=== PATIENT | female | born 1960 | race Caucasian/White ===

== ENCOUNTER 2019-04-02 15:51 | Emergency (ER) | payer BC ==
--- OUTSIDE RECORDS SUMMARY | 2019-04-02 15:55 | XMS REPORT | Continuity of Care Document ---
:1960 External Reference #:[id number] Author Name Daryl Romero MD (transmitted by agent of provider Milly Sherwood ) Address [address] [place] [address] [place] [address] Care Team Providers Name Role Phone Diana Clark FNP - Family Care Team Information Oracle Data Warehouse Developer [phone] Problems Active Problems Provider Date Localized, primary osteoarthritis Emely Salas M.D. Onset: 07/31/2014 Social History Type Date Description Comments Sex Unknown ETOH Use Never used alcohol Tobacco Use Start: Unknown Patient has never smoked Smoking Status Reviewed: 02/16/19 Patient has never smoked Allergies, Adverse Reactions, Alerts Active Allergies Reaction Severity Comments Date Codeine 01/26/2014 Medications Active Medications SIG Qnty Indications Ordering Provider Date Gabapentin 1 by mouth four 90caps Daryl 02/16/2019 300mg Capsules times a day MD Nick Naproxen Take One Tablet 40tabs M17.0 Emely Salas, 08/28/2014 500mg Tablets By Mouth Twice A M.D. Day With Food; Maximum Daily Dose = 2 Multivitamins As directed Unknown Vitamin D As directed Unknown Vitamin B12 As directed Unknown Caltrate 600+D As directed Unknown Paroxetine HCL 1 by mouth every Unknown 20mg day Tablets Tylenol 8 Hour 1 by mouth twice Unknown Arthritis Pain a day 650mg Tablets ER Fiber Adult Gummies 2 gummies by Unknown 2gm mouth every day Chewtabs Medications Administered in Office Medication SIG Qnty Indications Ordering Provider Date Depomedrol 40MG Marleni Moe NP 03/28/2015 Injection Synvisc Or Synvisc-One Emely Josue, M.D. 07/31/2014 Injection 1 MG Injection Synvisc Or Synvisc-One Emely Salas M.D. 07/24/2014 Injection 1 MG Injection Synvisc Or Synvisc-One Emely Salas M.D. 07/17/2014 Injection 1 MG Injection Depomedrol 80MG Emely Salas M.D. 02/23/2014 Injection Depomedrol 80MG Emely Salas M.D. 01/26/2014 Injection Immunizations Description No Information Available Vital Signs Date Vital Result Comment 02/16/2019 10:18am Height 66 inches 5'6" Weight 244.00 lb Heart Rate 78 /min BP Systolic 138 mmHg BP Diastolic 88 mmHg Pain Level 1 lower back BMI (Body Mass Index) 39.4 kg/m2 03/28/2015 11:36am Height 66 inches 5'6" Weight 232.00 lb Pain Level 5 BMI (Body Mass Index) 37.4 kg/m2 Results Description No Information Available Procedures Description No Information Available Medical Devices Description No Information Available Encounters Description No Information Available Assessments Date Code Description Provider 02/16/2019 M51.17 Intervertebral disc disorders with Daryl Romero MD radiculopathy, lumbosacral region 02/16/2019 M51.36 Other intervertebral disc degeneration, Daryl Romero MD lumbar region Plan of Treatment 02/16/2019 - Daryl Romero MDM51.17 Intvrt disc disorders w radiculopathy, lumbosacral regionFollow up:RV prn. Patient will call our office if she would like to proceed with surgical intervention, possibly in the form of an Anterior Lumbar Interbody Fusion or a Transforaminal Lumbar Interbody Fusion. Please notify me at that time in case it is needed to order additional studies prior to the visit.M51.36 Other intervertebral disc degeneration, lumbar region Functional Status Description No Information Available Mental Status Description No Information Available Referrals Description No Information Available
--- OUTSIDE RECORDS SUMMARY | 2019-04-02 15:55 | XMS REPORT | Continuity of Care Document ---
:1960 External Reference #:[id number] Author Name Daryl Romero MD (transmitted by agent of provider Milly Sherwood ) Address [address] [place] [address] [place] [address] Care Team Providers Name Role Phone Diana Clark FNP - Family Care Team Information Document Image Technician [phone] Problems Active Problems Provider Date Localized, primary [...] Nick Naproxen Take One Tablet 40tabs M17.0 Emley Salas, 08/28/2014 500mg Tablets By Mouth Twice [...] Medical Devices Description No Information Available Encounters Type Date Location Provider Dx Diagnosis Office Visit 02/16/2019 [facility] M51.17 [facility]vrt disc 10[facility] MD disorders w radiculopathy, lumbosacral region M51.36 Other intervertebral disc degeneration, lumbar region Assessments Date Code Description Provider 02/16/2019 M51.17 Intervertebral disc disorders with Daryl Romero MD radiculopathy, lumbosacral region 02/16/2019 M51.36 Other intervertebral disc degeneration, Daryl Romero MD lumbar region Plan of Treatment No Information Available Functional Status Description No Information Available Mental Status Description No Information Available Referrals Description No Information Available
[2019-04-02 16:12] VITALS: BP 138/84
--- NOTE | 2019-04-02 16:17 | UC ---
Knee Pain HPI - HPI Summary HPI Summary: 58 yo woman, managed by the pain clinic with a hx of bilateral leg pain and osteoarthritis, who is scheduled for right total knee replacement in May. Yesterday she jen from a chair, and felt some popping sensation in the left knee, heard a pop and had a sharp pain which caused her leg to buckle. She now finds it hard to flex at the knee. Tends to use heat on her knees for relief of pain. Takes naproxen twice daily for pain from her back and legs. - History of Current Complaint Chief Complaint: UCLowerExtremity Stated Complaint: LEG PAIN Time Seen by Provider: 04/02/19 16:07 Hx Obtained From: Patient Hx Last Menstrual Period: post menopause Onset/Duration: Sudden Onset, Lasting Days - 1 Severity Initially: Moderate Severity Currently: Moderate Pain Intensity: 7 Character: Aching, Stiffness Aggravating Factor(s): Weight Bearing, Prolonged Standing, Stairs Alleviating Factor(s): Rest, Position Able to Bear Weight: Yes - not flexing the left knee when she walks - Risk Factors Septic Arthritis Risk Factor: Negative Gout Risk Factor: Age ^ 39 - Allergies/Home Medications Allergies/Adverse Reactions: Allergies Allergy/AdvReac Type Severity Reaction Status Date / Time codeine AdvReac Unknown Headache Verified 02/04/19 09:52 Home Medications: Home Medications Cholecalciferol (Vitamin D3) [Vitamin D3] 2,000 unit PO DAILY 07/09/18 [History Confirmed 02/24/19] Cyanocobalamin TAB* [Vitamin B12 TAB*] 500 mcg PO BID 07/09/18 [History Confirmed 02/24/19] Fiber 2 tab PO DAILY 07/09/18 [History Confirmed 02/24/19] Multivitamin [Multivitamins] 1 each PO DAILY 07/09/18 [History Confirmed ] Naproxen [Naproxen 500 mg tab] 500 mg PO BID 07/09/18 [History Confirmed ] [place]-3/Dha/Epa/Fish Oil [[place] 3 500 Softgel] 2 each PO DAILY 07/09/18 [ History Confirmed 02/24/19] PARoxetine HCL TAB* [Paxil TAB*] 20 mg PO DAILY 07/09/18 [History Confirmed ] tiZANidine TAB* [Zanaflex TAB*] 2 mg PO TID PRN 07/09/18 [History Confirmed ] Acetaminophen [Tylenol Arthritis] 650 mg PO 04/02/19 [History] PMH/Surg Hx/FS Hx/Imm Hx Previously Healthy: Yes - Surgical History Surgical History: Yes Surgery Procedure, Year, and Place: GANGLION CYST EXCISION FROM RT WRIST 10 YRS AGO; HYSTERECTOMY 12/06/2013 - Family History Known Family History: Positive: Diabetes - brother, Other - mother CA throat and lung - Social History Occupation: Employed Full-time - works for [employer]. Lives: With Family Alcohol Use: None Substance Use Type: None Smoking Status (MU): Never Smoked Tobacco Review of Systems All Other Systems Reviewed And Are Negative: Yes Constitutional: Positive: Negative Skin: Positive: Negative Eyes: Positive: Negative ENT: Positive: Negative Respiratory: Positive: Negative Cardiovascular: Positive: Negative Gastrointestinal: Positive: Negative Genitourinary: Positive: Negative Motor: Positive: Decreased ROM, Weakness Neurovascular: Positive: Negative Musculoskeletal: Positive: Decreased ROM, Myalgia Neurological/Mental Status: Positive: Negative Psychological: Positive: Negative Is Patient Immunocompromised?: No Physical Exam Triage Information Reviewed: Yes Appearance: Well-Appearing, Pain Distress - moderate, Obese Vital Signs: Initial Vital Signs Temp 98.4 F 04/02/19 16:01 Pulse 81 04/02/19 16:01 Resp 16 04/02/19 16:01 BP 138/84 04/02/19 16:01 Pulse Ox 96 04/02/19 16:01 ENT Exam: Normal ENT: Positive: Normal ENT inspection Neck: Positive: Supple, Nontender, No Lymphadenopathy Respiratory: Positive: Lungs clear, Normal breath sounds Cardiovascular: Positive: RRR, No Murmur Musculoskeletal Exam: Other - Antalgic gait. Left knee with patellar tenderness and tenderness along esau-medial joint line.Minimal effusion Musculoskeletal: Positive: Strength Intact, No Edema, ROM Limited @ - left knee- -lacks few degrees to full extension. Active flexion limited to 30 degrees., Other: - + MacMurray's with medial stress. Neurological Exam: Normal Neurological: Positive: Alert Psychological Exam: Normal Skin Exam: Normal Knee Pain Course/Dx - Course Course Of Treatment: Rest, ice elevation. Continue naproxen. She has no interest in narcotic pain medications. No imaging done as she had recent xray at [place]. - Differential Dx/Diagnosis Differential Diagnosis/HQI/PQRI: Bursitis, Internal Derangement Of Knee, Sprain , Strain Provider Diagnosis: Acute meniscal injury of left knee Discharge ED - Sign-Out/Discharge Documenting (check all that apply): Patient Departure All imaging exams completed and their final reports reviewed: No Studies - Discharge Plan Condition: Stable Disposition: HOME Patient Education Materials: Knee Sprain (ED) Forms: *Work Release Referrals: Heide De La Torre NP [Primary Care Provider] - Additional Instructions: The injury in your knee is suspected tear of the meial meniscus and some strain in the patellar tendon. Rest at home with your leg elevated and use ice packs to the knee for 10 to 15 minutes every 3 or 4 hours. Off work through next week. If not improving with rest, please follow up with Heide De La Torre or with Dr. Mccarthy. - Billing Disposition and Condition Condition: STABLE Disposition: Home
== END 2019-04-02 16:58 | disposition home or self-care (01) ==
LOC: UCEAST 15:51
DX: S83.8X2A Sprain of other specified parts of left knee, initial encounter (principal); M17.0 Bilateral primary osteoarthritis of knee; X50.9XXA Other and unspecified overexertion or strenuous movements or postures, initial encounter; Y92.9 Unspecified place or not applicable; Z88.5 Allergy status to narcotic agent
CPT/HCPCS: 99211; G0463